=== PATIENT | female | born 2000 | race Caucasian/White ===

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

== ENCOUNTER 2022-03-12 20:53 | Emergency (ER) | payer BC ==
[~2022-03-12] VITALS: Ht 170.1 cm; Wt 127.2 kg
--- NOTE | 2022-03-12 21:10 | ED Lower Extremity ---
General Chief Complaint: Lower Extremity Stated Complaint: L ANKLE PAIN Source: patient Exam Limitations: no limitations History of Present Illness Date Seen by Provider: Mar 12, 2022 Time Seen by Provider: 21:00 Initial Comments 21-year-old female with no pertinent past medical history coming in after she twisted her left ankle shortly prior to arrival now with left lateral ankle pain. Worse with putting any weight on it, better with rest, pain is moderate, sharp, in the left lateral part of her ankle. Has not taken anything for it as of yet. LMP was less than a month ago. Otherwise denying any other acute complaints. Allergies and Home Medications Allergies Coded Allergies: No Known Drug Allergies (Unverified , 11/27/21) Patient Home Medication List Home Medication List Reviewed: Yes Multivitamin (Multi-Vitamin Daily) 1 Each Tablet, 1 EACH PO, (Reported) Entered as Reported by: KELL TEJADA on 11/27/211323 Last Action: Last Taken Edited [Vitamin C] Unknown Strength , Unknown Dose, (Reported) Entered as Reported by: KELL TEJADA on 11/27/211323 Last Action: Last Taken Edited Review of Systems Constitutional: no symptoms reported EENTM: no symptoms reported Respiratory: no symptoms reported Cardiovascular: no symptoms reported Gastrointestinal: no symptoms reported Genitourinary: no symptoms reported Musculoskeletal: see HPI Skin: no symptoms reported Psychiatric/Neurological: No Symptoms Reported All Other Systems Reviewed Negative Unless Noted: Yes Past Pgkjhgz-Hmhagy-Kqozfs Hx Patient Social History Tobacco Use?: No Use of E-Cig and/or Vaping dev: No Substance use?: No Alcohol Use?: No Pt feels they are or have been: Unable to obtain Immunizations Up To Date First/Initial COVID19 Vaccinat: unvaccinated Seasonal Allergies Seasonal Allergies: Yes Past Medical History Surgery/Hospitalization HX: Tonsillectomy Surgeries: Yes (BMT'S, WISDOM TEETH ) Respiratory: No Currently Using CPAP: No Currently Using BIPAP: No Cardiac: No Neurological: No Genitourinary: No Gastrointestinal: Yes Gastroesophageal Reflux, Chronic Constipation Musculoskeletal: Yes (HAIRLINE ANKLE ) Fractures Endocrine: No HEENT: Yes (TONSIL STONES) Tonsilitis Cancer: No Psychosocial: No Integumentary: Yes (DRY SKIN) Blood Disorders: No Physical Exam Vital Signs Vital Signs - First Documented 03/12/22 20:55 Temp 36.8 Pulse 105 Resp 20 B/P (MAP) 134/78 (96) Pulse Ox 99 O2 Delivery Room Air Capillary Refill : Height, Weight, BMI Height: '" Weight: lbs. oz. kg; 49.46 BMI Method: General Appearance: WD/WN, no apparent distress HEENT: PERRL/EOMI, normal ENT inspection, pharynx normal Neck: non-tender, full range of motion, supple, normal inspection Cardiovascular: regular rate, rhythm, no edema, no murmur Respiratory: chest non-tender, lungs clear, normal breath sounds, no respiratory distress, no accessory muscle use Gastrointestinal: normal bowel sounds, non tender, soft Back: normal inspection Legs: bilateral leg non-tender, bilateral leg normal inspection, bilateral leg normal range of motion, bilateral leg no evidence of injury Knees: bilateral knee non-tender, bilateral knee normal inspection, bilateral knee normal range of motion, bilateral knee no evidence of injury Ankles: right ankle non-tender, right ankle normal inspection, right ankle normal range of motion, right ankle no evidence of injury; left ankle bone tenderness (Left lateral malleolus, no tenderness over the Lisfranc, base of the fifth metatarsal, calcaneus, Achilles, or proximal fibula) Feet: bilateral foot non-tender, bilateral foot normal inspection, bilateral foot normal range of motion, bilateral foot no evidence of injury Neurologic/Tendon: normal sensation, normal motor functions Neurologic/Psychiatric: no motor/sensory deficits, alert, normal mood/affect Skin: normal color, warm/dry Lymphatic: no adenopathy Progress/Results/Core Measures Results/Orders My Orders Orders - PAVAN DANIELLE MD Ibuprofen Tablet (Motrin Tablet) (03/12/22 21:15) Ankle 3 View Left (03/12/22 21:06) Medications Given in ED Current Medications Medications Dose Ordered Sig/Cristiane Route Start Time Stop Time Status Last Admin Dose Admin Ibuprofen 600 mg ONCE ONCE PO 03/12/22 21:15 03/12/22 21:16 DC 03/12/22 21:20 600 MG Vital Signs/I&O 03/12/22 03/12/22 20:55 21:20 Temp 36.8 36.8 Pulse 105 Resp 20 B/P (MAP) 134/78 (96) Pulse Ox 99 O2 Delivery Room Air Progress Progress Note : Progress Note Presented for left lateral ankle pain mostly over the ATFL consistent with sprain. X-ray my interpretation with no fracture or dislocation. Given an ankle boot for pain control. Diagnostic Imaging Diagonstic Imaging: Xray (left ankle) Comments [facility] [place], [place] NAME: RICKEY MOREJON MED REC#: [id number] PT STATUS: REG ER : 2000 PHYSICIAN: PAVAN DANIELLE MD ADMIT DATE: 03/12/22/ER FS Draft Date of Exam:03/12/22 ANKLE 3 VIEW LEFT INDICATION: Left ankle pain AP, oblique, and lateral views of the left ankle are obtained. No fracture or acute bony abnormality seen. Joint spaces are unremarkable. IMPRESSION: Negative left ankle. Dictated on workstation # [id number] Dict: 03/12/222121 Trans: 03/12/222124 [facility] [id number] Interpreted by: PATIENCE HOFFMAN MD Electronically signed by: Departure Impression Primary Impression: Sprain and strain of ankle Disposition: 01 HOME, SELF-CARE Condition: Stable Departure-Patient Inst. Decision time for Depature: 21:33 Referrals: [place] DEVI MAXWELL MD (PCP/Family) Primary Care Physician Patient Instructions: Ankle Sprain ED Add. Discharge Instructions: Your ankle is sprained, follow-up with Chito Devi as needed. Use the walking boot as needed for pain control. He can also buy a lace up ankle splint at [facility]. I recommend ice for the next couple days. Ibuprofen or Tylenol for pain. Work/School Note: Work Release Form Date Seen in the Emergency Department: Mar 12, 2022 Return to Work: Mar 16, 2022 Restrictions: No Restrictions PAVAN DANIELLE MD Mar 12, 2022 21:09
[2022-03-12] MEDS ORDERED: IBUPROFEN 600 MG (MOTRIN) TAB PO ONE (21:15)
--- NOTE | 2022-03-12 21:25 | Diagnostic Imaging Report ---
INDICATION: Left ankle pain AP, oblique, and lateral views of the left ankle are obtained. No fracture or acute bony abnormality seen. Joint spaces are unremarkable. IMPRESSION: Negative left ankle. Dictated by: Dictated on workstation # [id number]
[2022-03-12 21:45] VITALS: BP 134/78
== END 2022-03-12 21:45 | disposition home or self-care (01) ==
LOC: EDUNIT# 20:53 → ER FS 20:54
DX: S93.402A Sprain of unspecified ligament of left ankle, initial encounter (principal); S96.912A Strain of unspecified muscle and tendon at ankle and foot level, left foot, initial encounter; Z28.310 Unvaccinated for COVID-19; X50.1XXA Overexertion from prolonged static or awkward postures, initial encounter
CPT/HCPCS: 73610